=== PATIENT | female | born 1930 | race African-American/Black ===

== ENCOUNTER 2017-06-18 14:03 | Emergency (ER) | payer MEDICARE, OTHER ==
[~2017-06-18] VITALS: Ht 157.5 cm; Wt 57.0 kg
[2017-06-18] MEDS ORDERED: METHYLPREDNISOLONE SOD SUCC 125 MG/2 ML VIAL IV STA (16:05)
[2017-06-18] MEDS ORDERED: KETOROLAC 30MG/ML VIAL IV STA (16:05)
[2017-06-18] MEDS ORDERED: IPRATROPIUM BROMIDE (0.02%) 0.5MG/2.5ML NEB HHN STA (16:05)
[2017-06-18] MEDS ORDERED: ALBUTEROL (0.083%) 2.5MG/3ML NEB HHN STA (16:05)
[2017-06-18 16:46] LABS: HEMATOCRIT. 37.7 % (36.0-48.0); HEMOGLOBIN. 12.8 g/dL (12.0-16.0); MEAN CORPUSCULAR HEMOGLOBIN 29.5 pg (28.0-32.0); MEAN CORPUSCULAR VOLUME 86.8 fL (81.0-99.0); MEAN PLATELET VOLUME 8.2 fl (7.4-10.4); PLATELET 189 x1000/uL (130-400); RED BLOOD CELL COUNT 4.34 mill/uL (4.2-5.4); RED CELL DISTRIBUTION WIDTH 15.3 % (11.6-14.6)
[2017-06-18 16:51] LABS: CHLORIDE 97 mEq/L (98-107)
[2017-06-18 17:06] LABS: PLATELET ESTIMATE NORMAL
[2017-06-18] MEDS ORDERED: LEVOFLOXACIN 250MG TABLET PO ONE (18:45)
[2017-06-18 19:14] VITALS: BP 144/70
== END 2017-06-18 19:14 | disposition home or self-care (01) ==
LOC: ER 14:29
DX: J44.1 Chronic obstructive pulmonary disease with (acute) exacerbation (principal); Z87.891 Personal history of nicotine dependence; Z88.2 Allergy status to sulfonamides
CPT/HCPCS: 36415; 71045; 80053; 83605; 83690; 83880; 84484; 85025; 87040; 93005; 94640; 96374; 96375; 99285; J1885; J2930; J7611